=== PATIENT | male | born 2000 | race African-American/Black ===

== ENCOUNTER → 2021-05-10 08:51 | Outpatient (BNVA) | payer SELFPAY | PROVIDERS: PCP Nurse Practitioner Pediatrics | DX: Z02.1 Encounter for pre-employment examination (principal) ==

== ENCOUNTER 2024-08-30 19:01 | Day surgery (SDC) | payer OTHER, SELFPAY ==
--- NOTE | ~2024-08-30 | CT_ITS ---
EXAMINATION: CT ABDOMEN AND PELVIS WITH CONTRAST CLINICAL INFORMATION: Right lower quadrant pain COMPARISON: None TECHNIQUE: Multidetector volumetric imaging was performed from the superior aspect of the liver through the pubic symphysis with intravenous contrast. A total of 85 mL of Omnipaque 350 was utilized for the study. Sagittal and coronal reformatted images were obtained on the technologist's workstation. This CT examination was performed using dose optimization techniques as appropriate, variously including the following: *Automated exposure control *Adjustment of mA and/or kV according to patient size (this includes techniques or standardized protocols for targeted exams where dose is matched to indication/reason for exam; i.e. extremities or head) *Use of iterative reconstruction technique DLP: 461 mGy-cm FINDINGS: LUNG BASES: The visualized lung bases are unremarkable. LIVER, GALLBLADDER, AND BILIARY TREE: The liver is normal in size, shape, and attenuation. No focal hepatic lesion or biliary ductal dilatation is present. The gallbladder is unremarkable with no evidence of radiopaque gallstones, gallbladder wall thickening, or obvious pericholecystic inflammatory changes. PANCREAS: Unremarkable. SPLEEN: Unremarkable. ADRENAL GLANDS: Unremarkable. KIDNEYS AND URETERS: The kidneys are normal in size, shape, and attenuation. No hydronephrosis, hydroureter, or calculi seen. No perinephric stranding. BLADDER: Mild symmetric thickening of the bladder GASTROINTESTINAL TRACT: The small and large bowel are unremarkable aside from colonic diverticulosis without diverticulitis. The appendix is prominent in size measuring 8 mm in greatest dimension. The appendix contains no air. No phleboliths are seen. There are the slightest streaky changes in the fat around the appendix with thickening of the lateral conal fascia and the anterior pararenal fascia on which the appendix sits. ABDOMINAL WALL: No significant hernia is appreciated. LYMPH NODES: Prominent lymph nodes in the cecal mesentery. No retroperitoneal lymphadenopathy. VASCULAR: Unremarkable. PELVIC VISCERA: Unremarkable. OSSEOUS STRUCTURES: Unremarkable. CT/CT abdomen pelvis w IV con IMPRESSION: 1. The appendix is prominent in size measuring 8 mm in greatest dimension. There are the slightest streaky changes in the fat around the appendix with thickening of the lateral conal fascia and the anterior pararenal fascia on which the appendix sits. Prominent lymph nodes are present in the cecal mesentery. Findings are suspicious for early acute appendicitis. 2. Incidental note made of colonic diverticulosis without diverticulitis and mild symmetric thickening of the bladder. Fleischner guidelines were followed. Electronically signed by: Gordy Marie MD 08/30/2024 10:37 PM ANGEL LERNER
--- NOTE | 2024-08-30 19:02 | ED_ITS ---
HPI - Abdominal Pain General Chief Complaint: Abdominal Pain Stated Complaint: ? appendicitis Time Seen by Provider: 08/30/24 20:24 Source: patient Mode of arrival: ambulatory Limitations: no limitations History of Present Illness ED Provider: Deny Armendariz HPI narrative: 24 yold male presents to the ED for RLQ pain that began this morning. patient denies any fever, chills, or Benadryl symptoms. Patient states last meal was 11:00am. Patient denies any trauma. Related Data Allergies Allergy/AdvReac Type Severity Reaction Status Date / Time No Known Allergies Allergy Verified 08/30/24 19:05 Review of Systems Review of Systems Right lower quadrant abdominal pain Yes all other systems are reviewed and are negative PMFSH Social History Social History Smoked in Last 30 Days: No Use of substances other than those prescribed or required for medical reasons: No Advance Directives: No Advance Directives Information Provided: No Physical Exam ED Vital Signs: Vital Signs - 24 hr 08/30/24 19:03 08/30/24 19:30 08/30/24 23:24 Temperature 97.3 F 98.4 F 98.1 F Pulse Rate 84 76 69 Respiratory Rate 16 20 16 Blood Pressure 124/79 126/82 118/80 Pulse Oximetry 98 97 98 Oxygen Delivery Method Room Air Room Air Room Air BMI result Body Mass Index 24.6 Const General: cooperative, healthy appearing, comfortable, no acute distress, well developed, alert, awake and Physically active Orientation/consciousness: patient oriented x3 HENMT Head: Yes normal to inspection, Yes No palpable skull fracture present, Yes normocephalic and Yes atraumatic Eyes General: appearance normal, both eyes and all related structures Neck Neck: Yes normal visual inspection, Yes full ROM, Yes no lymphadenopathy, Yes no meningeal signs, Yes trachea midline, Yes supple, No anterior neck swelling and No tender Chest Chest palpation & inspection: normal inspection of the chest and normal palpation of entire chest wall Resp Effort & Inspection: normal respiratory effort and able to speak in complete sentences Auscultation: clear to auscultation bilaterally Cardio Jugular venous distension: no JVD Heart sounds: S1 normal heart sound present and S2 normal heart sound present GI Inspection: Yes normal to inspection Palpation (GI): Soft to palpation, not firm, Tenderness to palpation present (GI) in the RLQ, no guarding and not rigid General: Yes no CVA tenderness Back/Spine/Pelvis Back: no CVA tenderness and No back tenderness Skin General skin exam: no rashes or lesions noted, elasticity normal and turgor normal Neuro General: patient oriented x3, gait normal, tone normal, moves all extremities, Normal light touch and pain sensation, no meningeal signs, no focal motor deficits, CN's II-XI intact bilaterally and normal sensation to monofilament Extrem General: Yes normal to inspection, Yes full ROM and Yes capillary refill normal Psych Appearance: grossly normal, well kempt and not disheveled Course Course Course Narrative: This is a the rapid medical exam. Deferred additional HPI, ROS, PE to primary provider. 24 yo male with no known medical history with here with right lower abdominal pain x 1 day Will obtain labs, UA MARKO Wilson APRN Medical Decision Making Medical Decision Making [facility] Narrative: 24-year-old male healthy no past medical history presents to ED for right lower quadrant thumbs. Patient states nausea with no vomiting. Patient admits to decrease in the appetite. Patient states last meal 11:00. The CT scan confirmed appendicitis. Case was discussed with Dr. Gonzales surgeon who states patient should be held in the ED until morning he will take patient to the operative room. He agreed with the plan for patient to be NPO and started on Zosyn. Fluids ordered. Morphine was ordered p.r.n.. Differential Diagnosis Differential Diagnoses: The differential diagnosis associated with the presentation includes Consult Healthcare Provider Management of the patient was discussed with: Remotely Piloted Vehicle Controller (Dr. Gonzales) Lab Data [facility] Lab Attestation statement: I reviewed the patient's lab results. 08/30/24 19:12 08/30/24 19:12 Labs: Lab Results 08/30/24 08/30/24 Range/Units 19:12 20:16 WBC 12.6 H (4.8-10.8) X10*3/uL RBC 5.14 (4.60-5.80) X10*6/uL Hgb 14.8 (14.0-18.0) g/dl Hct 43.8 (42.0-52.0) % MCV 85.2 (80.0-98.0) fL MCH 28.8 (27.0-33.0) pg MCHC 33.8 (31.0-36.0) g/dl RDW 11.8 (11.0-16.0) % Plt Count 280 (160-400) X10*3/uL MPV 10.1 (9.4-12.4) fL Immature Gran % (Auto) 0.3 (0.0-0.4) % Neut % (Auto) 65.3 (45-73) % Lymph % (Auto) 25.8 (20-40) % [place] % (Auto) 7.4 (2-11) % Eos % (Auto) 1.0 (0-4) % Baso % (Auto) 0.2 (0-2) % Lymph # (Auto) 3.3 (1.2-4.9) X10*3/uL [place] # (Auto) 0.9 (0.1-1.2) X10*3/uL Eos # (Auto) 0.1 (0.0-0.4) X10*3/uL Baso # (Auto) 0.0 (0.0-0.2) X10*3/uL Abs Immat Gran (auto) 0.04 H (0.00-0.03) X10*3/uL Absolute Neuts (auto) 8.2 (2.0-8.3) x10*3/uL Absolute Nucleated RBC 0.000 (0.0-0.012) X10*3/uL Nucleated RBC % (auto) 0.0 (0.0-0.2) /100WBC Sodium 140 (135-145) mmol/L Potassium 4.1 (3.3-5.1) mmol/L Chloride 103 (96-108) mmol/L Carbon Dioxide 27 (22-29) mmol/L Anion Gap 14 (12-20) BUN 15 (9-16) mg/dL Creatinine 0.93 (0.5-1.4) mg/dL Estim Creat Clear Calc 131.5 Estimated GFR > 60 Random Glucose 93 (60-115) mg/dL Calcium 9.4 (8.4-10.2) mg/dL Total Bilirubin 0.6 (0.0-1.0) mg/dL Direct Bilirubin 0.2 (0.0-0.5) mg/dL AST 21 (5-37) U/L ALT 29 (0-40) U/L Alkaline Phosphatase 63 (39-117) U/L Total Protein 7.8 (6.5-8.0) g/dL Albumin 4.8 (3.5-5.0) g/dL Urine Color Yellow Urine Appearance Clear Urine pH 6.5 (5.0-9.0) Ur Specific [place] 1.025 (1.005-1.025) Urine Protein Negative (Neg-Trace) mg/dL Urine Glucose (UA) Negative (Negative) mg/dL Urine Ketones Negative (Negative) mg/dL Urine Blood Negative (Negative) Urine Nitrite Negative (Negative) Ur Leukocyte Esterase Negative (Negative) Independent Interpretation I performed an independent interpretation of an: CT Scan Radiology Impression Discussion of test interpretation with radiology: I have reviewed the radiologist's reading. Independent Historian Clinical information obtained from an independent historian. History obtained from or confirmed by: Other (Patient) External Record Review External record reviewed: Other (prior visits) Prescription Management I considered prescription management with: Pain Medication and Antibiotic Medications Administered Discontinued Medications Generic Name Dose Route Start Last Admin Trade Name Freq PRN Reason Stop Dose Admin Sodium Chloride 1,000 mls @ 999 mls/hr 08/30/24 20:24 08/30/24 21:37 Ns IV 08/30/24 21:24 Infused .Q1H1M STA Infusion Piperacillin Sod/Tazobactam 50 mls @ 100 mls/hr 08/30/24 23:13 08/30/24 23:34 Sod 3.375 gm/ Sodium Chloride IV 08/30/24 23:42 100 mls/hr ONCE ONE Administration Iohexol 85 ml 08/30/24 22:04 08/30/24 22:05 Iohexol 350 Mg/Ml 100 Ml Infus..Btl IV 08/30/24 22:05 85 ml ONCE ONE Administration Ketorolac Tromethamine 30 mg 08/30/24 20:25 08/30/24 20:34 Ketorolac Tromethamine 30 Mg/Ml Vial IVPUSH 08/30/24 20:26 30 mg ONCE ONE Administration Ondansetron HCl 4 mg 08/30/24 20:24 08/30/24 20:34 Ondansetron Hcl 4 Mg/2 Ml Vial IVPUSH 08/30/24 20:25 4 mg ONCE ONE Administration Discharge Plan Discharge Clinical Impression: Acute appendicitis Patient Disposition: Admitted As Inpatient Print Language: Swedish
[2024-08-30 19:03] VITALS: BP 124/79; PULSE 84; RESP 16; TEMP 36.3; O2SAT 98; BMI 24.6
[2024-08-30 19:17] LABS: MANUAL DIFF FLAG NO
[2024-08-30 19:22] LABS: Basophils Percent Auto 0.2 % (0-2); Eosinophils Absolute Auto 0.1 X10*3/uL (0.0-0.4); Hematocrit 43.8 % (42.0-52.0); Hemoglobin 14.8 g/dl (14.0-18.0); Imm Gran Abs Auto 0.04 X10*3/uL (0.00-0.03); Imm Gran Pct Auto 0.3 % (0.0-0.4); Lymphocytes Absolute Auto 3.3 X10*3/uL (1.2-4.9); Lymphocytes Percent Auto 25.8 % (20-40); Mean Corpuscular HGB Conc 33.8 g/dl (31.0-36.0); Mean Corpuscular Hemoglobin 28.8 pg (27.0-33.0); Mean Corpuscular Volume 85.2 fL (80.0-98.0); Mean Platelet Volume 10.1 fL (9.4-12.4); Monocytes Absolute Auto 0.9 X10*3/uL (0.1-1.2); Monocytes Percent Auto 7.4 % (2-11); Neutrophils Absolute Auto 8.2 x10*3/uL (2.0-8.3); Neutrophils Percent Auto 65.3 % (45-73); Platelet Count 280 X10*3/uL (160-400); Red Blood Count 5.14 X10*6/uL (4.60-5.80); Red Cell Distribution Width 11.8 % (11.0-16.0); White Blood Count 12.6 X10*3/uL (4.8-10.8)
[2024-08-30 19:30] VITALS: BP 126/82; PULSE 76; RESP 20; TEMP 36.9; O2SAT 97
[2024-08-30 19:31] LABS: Alanine Aminotransferase 29 U/L (0-40); Albumin Level 4.8 g/dL (3.5-5.0); Alkaline Phosphatase 63 U/L (39-117); Anion Gap 14 (12-20); Aspartate Amino Transferase 21 U/L (5-37); Bilirubin Direct 0.2 mg/dL (0.0-0.5); Bilirubin Total 0.6 mg/dL (0.0-1.0); Blood Urea Nitrogen 15 mg/dL (9-16); Calcium 9.4 mg/dL (8.4-10.2); Carbon Dioxide 27 mmol/L (22-29); Chloride 103 mmol/L (96-108); Creatinine Clr Calc Pharmacy 131.5; Estimated Glomerular Filt Rate > 60; Glucose Random 93 mg/dL (60-115); Potassium 4.1 mmol/L (3.3-5.1); Sodium 140 mmol/L (135-145); Total Protein 7.8 g/dL (6.5-8.0)
[2024-08-30 20:22] LABS: Appearance Urine Clear; Color Urine Yellow; Glucose Urine UA Negative (Negative); Leukocyte Esterase Urine Negative (Negative); Nitrite Urine Negative (Negative); PH 6.5 (5.0-9.0); Specific Gravity - Urine 1.025 (1.005-1.025); Urine Blood Negative (Negative); Urine Ketones Negative (Negative); Urine Protein Negative (Neg-Trace)
[2024-08-30] MEDS: Ketorolac Tromethamine 30 MG/ML VIAL IVPUSH (20:34)
[2024-08-30] MEDS: ondansetron HCL 4 MG/2 ML VIAL IVPUSH (20:34)
[2024-08-30] MEDS: 0.9 % Sodium Chloride 1,000 ML 999 ML IV (20:34)
[2024-08-30] MEDS: iohexoL 350 MG/ML 100 ML INFUS..BTL 85 ML IV (22:05)
[2024-08-30 23:24] VITALS: BP 118/80; PULSE 69; RESP 16; TEMP 36.7; O2SAT 98
[2024-08-30] MEDS: Piperacillin Sodium/Tazobactam 3.375 GM in 0.9 % Sodium Chloride 50 ML IV (23:34)
[2024-08-31] VITALS (15 sets, daily range): BP systolic 99–108; BP diastolic 36–66; PULSE 60–79; RESP 15–16; TEMP 36.5–36.6; O2SAT 96–99
[2024-08-31] MEDS: Dextrose 5 % and 0.9 % NaCl 1,000 ML 125 ML IVCONT (02:11)
--- NOTE | 2024-08-31 07:35 | P.HPGS_ITS ---
History of Present Illness History of Present Illness Date of Service: 08/31/24 Chief complaint: ? appendicitis Narrative: Edi De Leon is a 24 year old male who presents initially yesterday late morning with nonspecific periumbilical discomfort which has relocated to the right lower quadrant as persistent pain. Because of progression of symptoms, he presents to the emergency department. Workup including CT scan demonstrated findings consistent with early appendicitis. Patient denies any sick contacts. He has not any unusual diet. He has not had a recent foreign travel. Incidentally, patient is employed here in the Radiology Department. Chart was reviewed and patient evaluated PMFSH Social History Social History Smoked in Last 30 Days: No Use of substances other than those prescribed or required for medical reasons: No Advance Directives: No Advance Directives Information Provided: No Meds Allergies Allergy/AdvReac Type Severity Reaction Status Date / Time No Known Allergies Allergy Verified 08/30/24 19:05 Active Medications: Current Medications Dextrose/Sodium Chloride (D5ns) 1,000 mls @ 125 mls/hr IVCONT .Q8H ONE Stop: 08/31/24 09:46 Last Admin: 08/31/24 02:11 Dose: 125 mls/hr Morphine Sulfate (Morphine Sulfate 4 Mg/Ml Cartridge) 4 mg IVPUSH ONCE PRN; Protocol PRN Reason: Pain, Moderate(Pain Scale 4-6) Physical Exam Vital Signs: Vital Signs: Last Vital Signs Temp 97.7 F 08/31/24 06:00 Pulse 60 08/31/24 06:00 Resp 16 08/31/24 06:00 BP 99/60 08/31/24 06:00 Pulse Ox 96 08/31/24 06:00 O2 Del Method Room Air 08/31/24 06:00 BMI result Body Mass Index 24.6 Chest: Other: Chest breath sounds bilaterally, HS 1 in 2 GI: Other: Abdomen scaphoid, soft. Marked right lower quadrant tenderness. Results Results Labs: Short CBC 08/30/24 Range/Units 19:12 WBC 12.6 H (4.8-10.8) X10*3/uL Hgb 14.8 (14.0-18.0) g/dl Hct 43.8 (42.0-52.0) % Plt Count 280 (160-400) X10*3/uL BMP 08/30/24 19:12 Sodium 140 Potassium 4.1 Chloride 103 Carbon Dioxide 27 BUN 15 Creatinine 0.93 Calcium 9.4 Liver Function 08/30/24 Range/Units 19:12 Total Bilirubin 0.6 (0.0-1.0) mg/dL Direct Bilirubin 0.2 (0.0-0.5) mg/dL AST 21 (5-37) U/L ALT 29 (0-40) U/L Alkaline Phosphatase 63 (39-117) U/L Albumin 4.8 (3.5-5.0) g/dL Urine 08/30/24 Range/Units 20:16 Urine Color Yellow Urine Appearance Clear Urine pH 6.5 (5.0-9.0) Ur Specific [place] 1.025 (1.005-1.025) Urine Protein Negative (Neg-Trace) mg/dL Urine Glucose (UA) Negative (Negative) mg/dL Assessment and Plan (1) Acute appendicitis: Status: Acute Plan Risks, benefits, and alternatives laparoscopic possible open appendectomy were reviewed with the patient and included but not limited to bleeding, infection, numbness, pain, scarring, bowel or bladder injury and the patient wishes to proceed. All questions answered. Arrangements were made for this for add on case for today. Quality Stroke Does the patient have a stroke diagnosis?: No VTE Prior VTE?: No VTE Risk Level:: Surgical - low VTE Device Contraindication: N/A - Device Ordered VTE Drug Contraindication: Treatment Not Indicated Procedures Date of Service Date of Service: 08/31/24
--- NOTE | 2024-08-31 08:38 | PHA.MEDREC ---
Addendum entered by Gregg López 08/31/24 09:01: reviewed Original Note: Pharmacy Consult ? Medication Reconciliation Pharmacy has completed the medication reconciliation. Spoke with patient and he confirmed he is not taking any medications at the moment.
--- NOTE | 2024-08-31 08:50 | PC.NURSE ---
Report given to SSS
--- NOTE | 2024-08-31 09:04 | PC.NURSE ---
Patient aware plan is to go to OR around 10am.
--- NOTE | 2024-08-31 10:33 | HO.ANESPROP2 ---
HPI - Anesthesia Eval Consult details Narrative: for christine braswell PMFSH Active Problems Active Problems: All Active Problems Acute appendicitis (Acute) Family History Family history of problems with anesthesia: No Surgical History History of Problems with Anesthesia: No Social History Social History Smoked in Last 30 Days: No Use of substances other than those prescribed or required for medical reasons: No Advance Directives: No Advance Directives Information Provided: No Meds Allergies Allergy/AdvReac Type Severity Reaction Status Date / Time No Known Allergies Allergy Verified 08/30/24 19:05 Active Medications: Current Medications Morphine Sulfate (Morphine Sulfate 4 Mg/Ml Cartridge) 4 mg IVPUSH ONCE PRN; Protocol PRN Reason: Pain, Moderate(Pain Scale 4-6) Home Medications ?Medication ?Instructions ?Recorded ?Confirmed ?Last Taken ?Type No Known Home Meds 08/31/24 08/31/24 Unknown History Exam Height,Weight and Vital Signs: Height 5 ft 11 in Weight 80 kg Last Vital Signs Temp 97.7 F 08/31/24 06:00 Pulse 60 08/31/24 06:00 Resp 16 08/31/24 06:00 BP 99/60 08/31/24 06:00 Pulse Ox 96 08/31/24 06:00 O2 Del Method Room Air 08/31/24 06:00 Pertinent Lab Results Pertinent Lab Results: Laboratory Tests 08/30/24 08/30/24 19:12 20:16 WBC 12.6 H RBC 5.14 Hgb 14.8 Hct 43.8 MCV 85.2 MCH 28.8 MCHC 33.8 RDW 11.8 Plt Count 280 MPV 10.1 Immature Gran % (Auto) 0.3 Neut % (Auto) 65.3 Lymph % (Auto) 25.8 [place] % (Auto) 7.4 Eos % (Auto) 1.0 Baso % (Auto) 0.2 Lymph # (Auto) 3.3 [place] # (Auto) 0.9 Eos # (Auto) 0.1 Baso # (Auto) 0.0 Abs Immat Gran (auto) 0.04 H Absolute Neuts (auto) 8.2 Absolute Nucleated RBC 0.000 Nucleated RBC % (auto) 0.0 Sodium 140 Potassium 4.1 Chloride 103 Carbon Dioxide 27 Anion Gap 14 BUN 15 Creatinine 0.93 Estim Creat Clear Calc 131.5 Estimated GFR > 60 Random Glucose 93 Calcium 9.4 Total Bilirubin 0.6 Direct Bilirubin 0.2 AST 21 ALT 29 Alkaline Phosphatase 63 Total Protein 7.8 Albumin 4.8 Urine Color Yellow Urine Appearance Clear Urine pH 6.5 Ur Specific [place] 1.025 Urine Protein Negative Urine Glucose (UA) Negative Urine Ketones Negative Urine Blood Negative Urine Nitrite Negative Ur Leukocyte Esterase Negative Airway Mallampati Class: II TM Dist: >3cm Neck ROM: Full Heart: rrr Lungs: cta Assessment and Plan Assessment Anesthesia Assessment: Anesthesia Plan Discussed Final Anesthetic Review Family History of Problems with Anesthesia: No History of Problems with Anesthesia: No NPO: Yes ASA Class: I Final Preanesthetic Review: No Changes in Pt Med Stat, Meds/Allgs Chart Reviewed, Consent Obtained/Reviewed and Anes Risks/Benef Reviewed Patient Risk: Low Procedure Risk: Low Anesthetic Plan Anesthetic Plan: GA Disposition: Standard PACU
--- NOTE | 2024-08-31 12:13 | W.PM.OPN ---
Operative Note Operative Note Date of Service: 08/31/24 Narrative: Preoperative diagnosis: [] Acute appendicitis Postop diagnosis: [] The same Procedure [] laparoscopic appendectomy Surgeon: [] [employer] Attendants [employer]: [] Type of Anesthesia: [] General Indication for surgery: [] Edematous inflamed appendix. No gross evidence of perforation Findings: [] Patient brought to the operating room, placed on operative table supine position, after an adequate level of general anesthesia was induced, the patient's abdomen was prepped and draped in usual sterile fashion. Using a supraumbilical curvilinear incision, Hopkins technique was used to insufflate the abdominal cavity to 15 mm of CO2. Lower midline and suprapubic ports were placed under direct laparoscopic view, the patient placed in Trendelenburg position, and tilted to the left. Findings were as noted above. Appendix was grasped and brought onto the surgical field. It is mesentery was sequentially taken down using double firing of ligature device. Appendix was then transected the cecal base using endoscopic DREA stapler. Specimen was placed in an Endo-Catch bag, a retrieved through the umbilical port. Abdominal cavity was irrigated and secured hemostasis. All ports removed under direct laparoscopic view. Wounds were closed in the following manner; umbilical wound is fascia reapproximated using interrupted 0 Vicryl sutures. Skin wounds were closed using subcuticular 4-0 Vicryl sutures followed by Steri-Strips and sterile dressings. Wounds were infiltrated 0.5% Marcaine at completion. Sponge, needle, and instrument counts reported correct. Patient tolerated the procedure well and emerged from anesthesia in stable condition. EBL minimal
[2024-08-31] MEDS: ondansetron HCL 4 MG/2 ML VIAL IVPUSH (13:49)
== END 2024-08-31 15:31 | disposition home or self-care (01) ==
LOC: HO.ED 08-31 10:48 → HO.SSS 08-31 11:01
PROVIDERS: Nurse Practitioner Family; Emergency Provider Internal Medicine; PCP Nurse Practitioner Pediatrics; Visit Provider Surgery
PROC: 0DTJ4ZZ Resection of Appendix, Percutaneous Endoscopic Approach (ICD-10-PCS; CPT 44970; principal; 2024-08-31 11:00)
DX: K35.80 Unspecified acute appendicitis (principal)
CPT/HCPCS: 44970; 36415; 74177; 80048; 80076; 81003; 85025; 87040; 88304; 96361; 96365; 96366; 96375; 99285; J0131; J1100; J1885; J2003; J2405; J2543; J2704; J2795; J3010; Q9967

== ENCOUNTER → 2024-08-30 19:51 | Outpatient (BNV) | payer OTHER, SELFPAY | PROVIDERS: Emergency Provider Internal Medicine; PCP Nurse Practitioner Pediatrics; Visit Provider Surgery | DX: K35.80 Unspecified acute appendicitis (principal) | CPT/HCPCS: 44970; 99285 ==

== ENCOUNTER 2024-09-08 12:12 | Outpatient (AMB) | payer OTHER, SELFPAY ==
--- NOTE | 2024-09-08 12:10 | A.OFFVIS_ITS ---
Intake Visit Reasons: s/p laparoscopic appendectomy Intake Note: Patient here s/p laparoscopic appendectomy on 08-31-2024. Reports incision healing well. Patient c/o; no concerns. No longer taking rx pain meds. Field Foreman Required: No Accompanied by: Self / Same As Patient Allergies No Known Allergies Allergy (Verified 09/08/24 12:11) HPI Comments Details: Patient presents for follow-up status post laparoscopic appendectomy. He is doing well. Starting a diet. Having regular bowel habits. He is increasing his activity level. He has minimal incisional discomfort. Incidentally, patient was very strenuous activities at his place of [place] [place] [facility], [facility] Medical History (Updated 09/08/24 @ 00:04 by Sanju Sanchez) Acute appendicitis (08/31/24) Surgical History (Updated 09/08/24 @ 13:07 by Manjeet Gonzales MD) History of lung surgery Social History Patient Tobacco Use Status: Never used Tobacco Physical Exam GI Other: Abdomen is scaphoid, soft. All wounds clean dry and intact healing well Assessment & Plan Assessment & Plan (1) Status post laparoscopic appendectomy: Code(s): Z90.49 - Acquired absence of other specified parts of digestive tract Category: Medical Plan Because of the strenuous nature of his occupation at work, current plan is to keep the patient out for a few weeks time and then give him 2 weeks light duty once he returns. All questions answered. Patient will otherwise follow-up p.r.n. Medications: Discontinued oxycodone Partial Fill upon patient request. Discontinued Reason: Patient no longer taking 5 mg PO Q4H PRN 24 tabs 0RF pain (scale score 7-10) Coding Level of Care Code Global (08087) Diagnoses Status post laparoscopic appendectomy Z90.49
== END 2024-09-08 12:12 | disposition home or self-care (01) ==
LOC: HO.HGS 12:12
PROVIDERS: PCP Nurse Practitioner Pediatrics; Visit Provider Surgery
DX: Z90.49 Acquired absence of other specified parts of digestive tract (principal)
CPT/HCPCS: 99024